=== PATIENT | female | born 1985 | race Caucasian/White ===

== ENCOUNTER → 2022-09-11 16:49 | Outpatient (CLI) | payer OTHER, SELFPAY ==
--- NOTE | ~2022-09-11 | XR_ITS ---
EXAM: XR thoracic spine 3V DATE: 09/11/2022 17:11 HISTORY: Acute thoracic back pain . COMPARISON: None available. FINDINGS: Vertebral body alignment intact. Vertebral body heights preserved. Minimal disc space narr owing and marginal osteophytosis at multiple levels. No traumatic malalignment or fracture. Visualize d lung parenchyma is clear. Calcified left lung granuloma. IMPRESSION: No acute fracture or traumatic malalignment detected in the thoracic spine. Reviewed, dictated and finalized at location K. [employer] IMPRESSION: No acute fracture or traumatic malalignment detected in the thoraci c spine.
== END ==
PROVIDERS: PCP Physician Assistant; Visit Provider Physician Assistant
DX: M54.6 Pain in thoracic spine (principal)
CPT/HCPCS: 72072

== ENCOUNTER → 2023-01-03 15:45 | Outpatient (CLI) | payer OTHER, SELFPAY ==
--- NOTE | ~2023-01-03 | XR_ITS ---
XR scapula RT DATE: 01/03/2023 16:04 INDICATION: Right shoulder and scapular pain. No injury. TECHNIQUE: AP and lateral views COMPARISON: None FINDINGS: No fracture or dislocation, periosteal reaction or bone destruction. Normal alignment at th e acromioclavicular and glenohumeral joints. IMPRESSION: Negative Reviewed, dictated and finalized at location A. IMPRESSION: Negative
--- NOTE | ~2023-01-03 | XR_ITS ---
XR shoulder RT min 2V DATE: 01/03/2023 16:04 INDICATION: Right shoulder and scapular pain. No injury. TECHNIQUE: 4 views COMPARISON: None FINDINGS: No fracture or dislocation, periosteal reaction or bone destruction. No abnormal right shou lder soft tissue calcification. IMPRESSION: Negative Reviewed, dictated and finalized at location A. IMPRESSION: Negative
== END ==
PROVIDERS: PCP Physician Assistant; Visit Provider Physician Assistant
DX: M25.519 Pain in unspecified shoulder (principal)
CPT/HCPCS: 73010; 73030